=== PATIENT | female | born 1955 | race American Indian/Alaskan Native ===

== ENCOUNTER 2016-09-30 08:22 | Outpatient (CLI) | payer MEDICARE ==
--- NOTE | 2016-09-30 12:31 | Mammography Report ---
STEREOTACTIC VACUUM ASSISTED BIOPSY WITH CLIP PLACEMENT LEFT BREAST: 09/30/16 08:22:00 CLINICAL: Suspicious calcifications. COMPARISON:08/17/16 FINDINGS: Consent for the procedure was obtained. The previously described upper and are calcifications were targeted with stereotactic guidance. The skin was prepped with Betadine and anesthetized with 1% lidocaine. 2% lidocaine with epinephrine was injected for deeper anesthesia. 8 gauge Mammotome biopsy was performed from a CC from above approach through a small dermatotomy. Prefire and post-fire images demonstrated satisfactory positioning of the probe. Samples were obtained around the clock face. A specimen radiograph confirmed satisfactory sampling with removal of public service representative calcifications. A clip was deployed at the biopsy site and the appointment was confirmed with a radiograph. The probe was removed and hemostasis was achieved with mild pressure. A sterile dressing was applied. The patient tolerated the procedure well and there were no apparent complications. Two view mammogram demonstrated concordant position of the biopsy clip.A few calcifications remain near the biopsy site. IMPRESSION: Uncomplicated stereotactic biopsy with clip placement left breast.
--- NOTE | 2016-09-30 12:31 | Mammography Report ---
STEREOTACTIC VACUUM ASSISTED BIOPSY WITH CLIP PLACEMENT LEFT BREAST: 09/30/16 08:22:00 CLINICAL: Suspicious calcifications. COMPARISON:08/17/16 FINDINGS: Consent for the procedure was obtained. The previously described upper and are calcifications were targeted with stereotactic guidance. The skin was prepped with Betadine and anesthetized with 1% lidocaine. 2% lidocaine with epinephrine was injected for deeper anesthesia. 8 gauge Mammotome biopsy was performed from a CC from above approach through a small dermatotomy. Prefire and post-fire images demonstrated satisfactory positioning of the probe. Samples were obtained around the clock face. A specimen radiograph confirmed satisfactory sampling with removal of national account representative calcifications. A clip was deployed at the biopsy site and the appointment was confirmed with a radiograph. The probe was removed and hemostasis was achieved with mild pressure. A sterile dressing was applied. The patient tolerated the procedure well and there were no apparent complications. Two view mammogram demonstrated concordant position of the biopsy clip.A few calcifications remain near the biopsy site. IMPRESSION: Uncomplicated stereotactic biopsy with clip placement left breast.
--- NOTE | 2016-09-30 12:55 | Ultrasound Report ---
ULTRASOUND GUIDED NEEDLE CORE BIOPSY WITH CLIP PLACEMENT AT 2 SITES RIGHT BREAST : 09/30/16 CLINICAL: Solid right breast mass at 6 o'clock. COMPARISON :08/17/16 ultrasound. FINDINGS: The procedure was explained to the patient and informed consent was obtained . Ultrasound demonstrated the previously described oval solid hypoechoic mass measuring 1.5 x 1.2 x 0.7 cm. It is located at 7 o'clock 9 cm from the nipple and correlates with the previously described mass at 6 o'clock. In addition, a solid hypoechoic suspicious serpiginous mass was identified at 8 o'clock 5 cm from the nipple measuring 2.1 x 0.7 x 1.5 cm. The skin was prepped with Betadine and anesthetized with 1% lidocaine. Ultrasound needle core biopsy was performed at 7 o'clock 9 cm from nipple through a small dermatotomy using ultrasound guidance, 2% lidocaine with epinephrine for deep anesthesia and a 14-gauge coaxial Bard biopsy device. Imaging demonstrated satisfactory sampling. Multiple cores were obtained and placed in formalin. A localizer clip was placed within the mass. The skin was prepped with Betadine and anesthetized with 1% lidocaine. Ultrasound needle core biopsy was performed 8 o'clock 5 cm from the nipple through a small dermatotomy using ultrasound guidance, 2% lidocaine with epinephrine for deep anesthesia and a 14-gauge coaxial Bard biopsy device. Imaging demonstrated satisfactory sampling. Multiple cores were obtained and placed in formalin. A localizer clip was then placed within the lesion. Hemostasis was achieved at both sites with mild pressure and sterile dressings were applied. The patient tolerated the procedure well and there were no apparent complications. A two-view mammogram demonstrated concordant clip placement at both sites. She was discharged in good condition and was given instructions for wound care and followup. IMPRESSION: Uncomplicated ultrasound-guided needle core biopsy of right breast masses at 7 o'clock and 8 o'clock.
--- NOTE | 2016-09-30 12:58 | Mammography Report ---
RIGHT DIGITAL DIAGNOSTIC MAMMOGRAM: 09/30/16 08:22:00 CLINICAL: For clip placement immediately status post ultrasound biopsy of masses at 7 o'clock and 8 o'clock. COMPARISON:08/17/16 mammogram. FINDINGS: Biopsy clips are identified at 7 o'clock and 8 o'clock and correlate with the biopsy masses. IMPRESSION: Concordant clip placement status post ultrasound biopsy at 2 sites. BI-RADS CATEGORY: 4--Suspicious Pathology pending.
== END 2016-09-30 08:23 | disposition home or self-care (01) ==
LOC: SPVWC 08:22
PROVIDERS: ATTEND Internal Medicine
DX: R92.1 Mammographic calcification found on diagnostic imaging of breast (principal); N63 Unspecified lump in breast
CPT/HCPCS: 19081; 19083; 19084; 88305; A4648; G0206

== ENCOUNTER 2016-10-28 02:57 | Emergency (ER) | payer MEDICARE ==
[2016-10-28 03:31] VITALS: BP 136/83
== END 2016-10-28 09:00 | disposition left against medical advice (07) ==
LOC: ED 02:57
DX: R05 Cough (principal); Z53.21 Procedure and treatment not carried out due to patient leaving prior to being seen by health care provider